=== PATIENT | female | born 1960 | race Caucasian/White ===

== ENCOUNTER 2019-06-17 11:44 | Day surgery (SDC) | payer OTHER ==
[~2019-06-17] VITALS: Ht 165.1 cm; Wt 59.0 kg
[~2019-06-17 11:44] MED LIST: HYDROCODON-ACE1 EA10 PO; MORPHINE IMMEDI15 MG PO
[2019-06-17 12:02] LABS: HEMATOCRIT 42.6 % (36.0-48.0); HEMOGLOBIN 15.1 g/dL (12-16); MCH 32.9 pg (26.0-34.0); MCHC 35.4 g/dL (31.0-37.0); MCV 92.8 fL (80.0-100.0); MEAN PLATELET VOLUME 9.5 fL (7.4-10.4); RBC 4.59 10x6/uL (4.00-5.40); RDW 13.1 % (11.5-14.5); WBC 12.1 10x3/uL (4.8-10.8)
[2019-06-17 12:24] VITALS: BP 128/63; Ht 165.1 cm; Wt 59.0 kg
[2019-06-17] MEDS ORDERED: VISTARIL50 MG PO (17:55)
[2019-06-17] MEDS ORDERED: OXYCODONE HCL5 M1 PO (17:55)
[2019-06-17] MEDS ORDERED: ZOFRAN ODT4 MG/UDTAB PO (17:55)
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
== END 2019-06-17 19:45 | disposition home or self-care (01) ==
LOC: D.OPS 11:44 → D.PAN 13:45 → D.OPS 19:45
PROVIDERS: Anesthesiology; ATTEND Orthopaedic Surgery
DX: S42.021A Displaced fracture of shaft of right clavicle, initial encounter for closed fracture (principal); Y04.0XXA Assault by unarmed brawl or fight, initial encounter; Z01.812 Encounter for preprocedural laboratory examination

== ENCOUNTER 2019-07-03 06:00 | Day surgery (SDC) | payer OTHER ==
[~2019-07-03] VITALS: Ht 165.1 cm; Wt 59.1 kg
[~2019-07-03 06:00] MED LIST changes: +CYCLOBENZAPRINE10 MG; +OXYCODONE HCL5 M1 PO; +VISTARIL50 MG PO; +ZOFRAN ODT4 MG/UDTAB PO
[2019-07-03 06:22] LABS: HEMATOCRIT 39.7 % (36.0-48.0); HEMOGLOBIN 13.5 g/dL (12-16); MCH 31.6 pg (26.0-34.0); MEAN PLATELET VOLUME 9.1 fL (7.4-10.4); RBC 4.27 10x6/uL (4.00-5.40); RDW 13.3 % (11.5-14.5); WBC 10.2 10x3/uL (4.8-10.8)
[2019-07-03] MEDS ORDERED: TORADOL10 MG PO (07:22)
[2019-07-03 07:32] VITALS: BP 138/68; Ht 165.1 cm; Wt 59.1 kg
--- NOTE | 2019-07-03 09:15 | NUR ---
CLOSED REDUCTION ATTEMPTED. INCISION MADE AND FX DISCOVERED
[2019-07-03] MEDS ORDERED: ZOFRAN ODT4 MG/UDTAB PO (10:27)
[2019-07-03] MEDS ORDERED: VISTARIL50 MG PO (10:27)
[2019-07-03] MEDS ORDERED: OXYCODONE HCL5 M1 PO (10:27)
[2019-07-03] MEDS ORDERED: KEFLEX500 MG PO (10:28)
--- NOTE | 2019-07-03 14:53 | OP ---
PATIENT NAME: JESSENIA MADERA MEDICAL RECORD: [id number] :64 LOCATION:[facility] ADMISSION DATE: SURGEON: SHAIHD SINGH DO DATE OF OPERATION: 07/03/2019 PROCEDURE PERFORMED: Revision open reduction internal fixation of the right clavicle. PREOPERATIVE DIAGNOSES: Hematoma, possible SC dislocation of the right clavicle. POSTOPERATIVE DIAGNOSES: Failure ORIF, fixation failure of the right clavicle. INDICATIONS: Ms. Madera is a 59-year-old female, who underwent ORIF of her right clavicle approximately 2-1/2 weeks ago. She fell, but did not think anything of it. She came to the office, had what we thought was a hematoma over the anterior medial portion of her incision. This did not go down with time and I saw her in clinic yesterday at the [facility] where we do not have the proper x-ray for me to get a true. On AP, the x-ray looked good, but not a Zanca view or a top-down view to see where the plates was because the anterior plate. I informed her that we will try to do that as I thought it was a hematoma due to the location and had locking screws put in the plate. Did not anticipate the fixation to fail. I informed her we would do what we needed to when we got in there, try to reduce it and once I opened it, I saw that the plate was off. She was informed of the risks including infection, bleeding, damage to nerves and vessels, need for further surgery, and she signed the consent. SURGEON: Shahid Singh DO DESCRIPTION OF PROCEDURE: The patient was taken to the operative suite, laid in supine position, given general anesthetic and LMA was placed. She was given a gram of Ancef preoperatively. Initially tried to reduce what I thought was the SC joint, it would not reduce and we decided to open it up. After she was prepped and draped and a time-out was performed, I opened it up over the medial spot and the plate was sitting right under the skin medially. The fixation had not failed laterally, however. This plate was then removed. The site was irrigated and a longer Acumed plate was put on. Put 5 screws medially with good fixation, 2 locking screws and 3 cancellous 4.0 screws. This was all in the anterior. Then laterally 3 screws, two 4.0 cannulated and 1 locking in the most distal hole. Once that fixation was good, the site was irrigated and the platysma was attempted to be closed, that was with #1 Vicryl in [id number] in simple interrupted and 2-0 Vicryl as well. The skin was then closed with 2-0 Vicryl in an inverted interrupted fashion, 4-0 Monocryl ran on the skin. Prineo glue placed on the skin, and Telfa and Tegaderm on the skin. She was then awakened and taken to recovery room in stable condition. BLOOD LOSS: 50 mL. COMPLICATIONS: None. TRANSINT:[id number] Voice Confirmation ID: [id number] DOCUMENT ID: [id number] OPERATIVE REPORT [id number] JESSENIA MADERA,SHAHID Pal DO at 1453 CC: [id number] DICTATION DATE: 07/03/19 1024 [employer] SURVEILLANCE TECHNICIAN: 07/03/19 1055 [facility] [address] [place] [address]
== END 2019-07-03 12:35 | disposition home or self-care (01) ==
LOC: D.OPS 06:00
PROVIDERS: Anesthesiology; ATTEND Orthopaedic Surgery
DX: T84.228A Displacement of internal fixation device of other bones, initial encounter (principal); W19.XXXA Unspecified fall, initial encounter; Z01.812 Encounter for preprocedural laboratory examination